=== PATIENT | male | born 1955 | race Caucasian/White ===

== ENCOUNTER 2019-10-29 23:25 | Emergency (ER) | payer BC ==
--- NOTE | 2019-10-29 23:29 | ED Physician Documentation ---
History of Present Illness - Stated complaint Stated Complaint: CHEST DISCOMFORT, NAUSEA - History obtained from History obtained from: Patient (Patient is a very pleasant 64-year-old male who presents with a chief complaint of chest pain and a feeling of being nauseated off and on for the last several night he was unable to sleep complaining of chest pain without shortness of breath he denies any history of pulmonary embolism or DVT he denies any hemoptysis. He denies any recent surgeries or long travels or any personal or family history of hypercoagulability. He reports he is not seen a doctor in several years she reports he is never had a stress test.He denies any syncopal episodes he denies abdominal pain or dark urine or abiodun colored stools or any jaundice-like symptoms.) Review of Systems Constitutional: reports: Reviewed and negative Eyes: reports: Reviewed and negative Ears: reports: Reviewed and negative Nose: reports: Reviewed and negative Throat: reports: Reviewed and negative Cardiac: reports: Chest pain / pressure Respiratory: reports: Reviewed and negative GI: reports: Reviewed and negative : reports: Reviewed and negative Skin: reports: Reviewed and negative Musculoskeletal: reports: Reviewed and negative Neurologic: reports: Reviewed and negative Psychiatric: reports: Reviewed and negative Endocrine: reports: Reviewed and negative Immunocompromised: reports: Reviewed and negative PD PAST MEDICAL HISTORY - Present Medications Home Medications: Ambulatory Orders Medication Instructions Recorded Confirmed No Known Home Medications 10/29/19 10/29/19 - Allergies Allergies/Adverse Reactions: Allergies Allergy/AdvReac Type Severity Reaction Status Date / Time No Known Drug Allergies Allergy Verified 10/29/19 23:45 PD ED PE NORMAL - Vitals Vital signs reviewed: Yes - General General: Alert and oriented X 3, No acute distress - HEENT HEENT: Atraumatic, PERRL, EOMI, Ears normal, Pharynx benign - Neck Neck: Supple, no meningeal sign, No bony TTP, No JVD - Cardiac Cardiac: RRR, No murmur, Strong equal pulses - Respiratory Respiratory: No respiratory distress, Clear bilaterally - Abdomen Abdomen: Normal bowel sounds, Soft, Non tender, Non distended, No organomegaly - Derm Derm: Normal color, Warm and dry, No rash - Extremities Extremities: No deformity, No tenderness to palpate, Normal ROM s pain, No edema, No calf tenderness / cord - Neuro Neuro: Alert and oriented X 3, 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, No motor deficit, No sensory deficit, Normal speech - Psych Psych: Normal mood, Normal affect Results - Vitals Vitals: Vital Signs - 24 hr 10/29/19 10/30/19 10/30/19 23:30 00:04 00:08 Temperature 36.6 C Heart Rate 66 68 76 Respiratory 12 17 12 Rate Blood Pressure 167/91 H 151/91 H 131/102 H Blood Pressure 167/91 H [Left] Blood Pressure 126/85 H [Right] O2 Saturation 98 99 97 10/30/19 10/30/19 10/30/19 00:21 00:29 00:55 Temperature Heart Rate 64 69 66 Respiratory 12 12 15 Rate Blood Pressure 126/85 H 123/80 113/70 Blood Pressure [Left] Blood Pressure [Right] O2 Saturation 99 96 99 10/30/19 10/30/19 01:19 01:37 Temperature Heart Rate 59 L 61 Respiratory 16 12 Rate Blood Pressure 109/67 123/70 Blood Pressure [Left] Blood Pressure [Right] O2 Saturation 96 99 Oxygen O2 Source Room air - EKG (time done) 23:33 Rate: Other (EKG shows a rate of 65 MO interval 165 QRS 104 QTc 437P waves are upright in leads I, II and III inverted in aVR there is no MO depression or MO depression and lead to aVR respectively there is normal axis there is good R wave progression there is no acute ST segment elevation or depression no shortened MO intervals no biphasic T waves otherwise its a nonspecific EKG he has an isolated inverted T wave in lead III) 01:22 Rate: Other (NO STEMI) - Labs Labs: Laboratory Tests 10/29/19 10/29/19 10/29/19 23:40 23:40 23:40 WBC 9.8 RBC 4.56 L Hgb 14.2 Hct 42.5 MCV 93.2 MCH 31.1 H MCHC 33.4 RDW 13.0 Plt Count 270 MPV 11.5 H Neut # (Auto) 4.4 Lymph # (Auto) 3.4 Coryell # (Auto) 1.3 H Eos # (Auto) 0.5 Baso # (Auto) 0.1 Absolute Nucleated RBC 0.00 Nucleated RBC % 0.0 PT 11.5 INR 1.0 APTT 32.4 Sodium 138 Potassium 3.6 Chloride 102 Carbon Dioxide 28 Anion Gap 8.0 BUN 14 Creatinine 0.8 Estimated GFR (MDRD) 97 Glucose 112 H Calcium 9.2 Total Bilirubin 0.5 AST 16 ALT 22 Alkaline Phosphatase 52 Troponin I High Sens B-Natriuretic Peptide Total Protein 7.3 Albumin 4.2 Globulin 3.1 Albumin/Globulin Ratio 1.4 Lipase 34 10/29/19 10/29/19 23:40 23:55 WBC RBC Hgb Hct MCV MCH MCHC RDW Plt Count MPV Neut # (Auto) Lymph # (Auto) Coryell # (Auto) Eos # (Auto) Baso # (Auto) Absolute Nucleated RBC Nucleated RBC % PT INR APTT Sodium Potassium Chloride Carbon Dioxide Anion Gap BUN Creatinine Estimated GFR (MDRD) Glucose Calcium Total Bilirubin AST ALT Alkaline Phosphatase Troponin I High Sens 4.4 B-Natriuretic Peptide 35 Total Protein Albumin Globulin Albumin/Globulin Ratio Lipase PD MEDICAL DECISION MAKING - ED course Complexity details: re-evaluated patient, d/w patient (The patient was evaluated multiple times the patient reports he is pain-free I did recommended mission as the patient has a heart score of 6. I did recommend admission for further evaluation to include echo of the heart as well as consider a stress test. The patient would like to be discharged home and follow-up with a motor equipment lieutenant as an outpatient. He does have medical decision-making capability and capacity and accepts all risks to include sudden , cardiac arrest, respiratory arrest or any possible adverse outcome such as disability and assumes a liability.) Departure - Departure Disposition: 01 Home, Self Care Clinical Impression: Chest pain Qualifiers: Chest pain type: other chest pain Qualified Code(s): R07.89 - Other chest pain Condition: Good Instructions: ED Heart Disease Risk Factors Follow-Up: YOUR,DOCTOR [Other] - Tomorrow
[2019-10-29] MEDS ORDERED: ASPIRIN 325 MG TABLET PO STA (23:56)
[2019-10-29] MEDS ORDERED: SODIUM CHLORIDE 0.9% 1,000 ML IV ONE (23:56)
[2019-10-29] MEDS ORDERED: NITROGLYCERIN SL 0.4 MG TABLET SL STA (23:57)
[2019-10-30 00:09] LABS: BASOPHILS # (AUTO) 0.1 10^3/uL (0.0-0.1); EOSINOPHILS # (AUTO) 0.5 10^3/uL (0.0-0.7); EOSINOPHILS % (AUTO) 5.5 %; HGB - HEMOGLOBIN 14.2 g/dL (14.0-18.0); LYMPHOCYTES # (AUTO) 3.4 10^3/uL (1.5-3.5); LYMPHOCYTES % (AUTO) 34.7 %; MEAN CORPUSCULAR HEMOGLOBIN 31.1 pg (27.0-31.0); MEAN CORPUSCULAR HGB CONC 33.4 g/dL (32.0-36.0); MEAN CORPUSCULAR VOLUME 93.2 fL (80.0-94.0); MEAN PLATELET VOLUME 11.5 fL (7.4-11.4); MONOCYTES # (AUTO) 1.3 10^3/uL (0.0-1.0); MONOCYTES % (AUTO) 13.6 %; NEUTROPHILS # (AUTO) 4.4 10^3/uL (1.5-6.6); NEUTROPHILS % (AUTO) 44.9 %; PLT - PLATELET COUNT 270 10^3/uL (130-450); RED BLOOD COUNT 4.56 10^6/uL (4.70-6.10); WHITE BLOOD COUNT 9.8 x10^3/uL (4.8-10.8)
[2019-10-30 00:17] LABS: ALBUMIN 4.2 g/dL (3.2-5.5); ALBUMIN/GLOBULIN RATIO 1.4 (1.0-2.2); BILIRUBIN,TOTAL 0.5 mg/dL (0.2-1.0); CALCIUM 9.2 mg/dL (8.5-10.3); CREATININE 0.8 mg/dL (0.6-1.2); TOTAL PROTEIN 7.3 g/dL (6.7-8.2)
[2019-10-30 00:22] LABS: PT - PROTHROMBIN TIME 11.5 secs (9.9-12.6)
[2019-10-30 00:30] LABS: PARTIAL THROMBOPLASTIN TIME 32.4 secs (24.9-33.3)
--- NOTE | 2019-10-30 00:52 | XRAY Report ---
Reason: CP Procedure Date: 10/30/2019 Accession Number: [id number] / [id number] Procedure: XR - Chest 1 View X-Ray CPT Code: 84462 Final Report FULL RESULT: EXAM: CHEST RADIOGRAPHY EXAM DATE: 10/30/2019 12:14 AM. CLINICAL HISTORY: CP. COMPARISON: None. TECHNIQUE: 1 view. FINDINGS: Lungs/Pleura: No focal opacities evident. No pleural effusion. No pneumothorax. Mediastinum: Cardiomegaly. Other: None. IMPRESSION: Cardiomegaly, but no evidence of acute cardiopulmonary disease. RADIA
[2019-10-30 02:11] VITALS: BP 135/79
== END 2019-10-30 02:21 | disposition home or self-care (01) ==
LOC: ED 23:25
DX: R07.9 Chest pain, unspecified (principal)
CPT/HCPCS: 36415; 71045; 80053; 83690; 83880; 84484; 85025; 85610; 85730; 93005; 96360; 99284; A9270

== ENCOUNTER 2021-07-24 11:49 | Emergency (ER) | payer OTHER, BC ==
[2021-07-24 11:57] VITALS: BP 164/103
[2021-07-24] MEDS ORDERED: MELOXICAM 7.5 MG TABLET PO STA (12:18)
--- NOTE | 2021-07-24 12:21 | ED Physician Documentation ---
History of Present Illness - Stated complaint Stated Complaint: L SIDE BACK PX - Chief complaint Chief Complaint: Back Pain - History obtained from History obtained from: Patient - History of Present Illness Timing: Today Pain level max: 5 Pain level now: 3 - Additonal information Additional information: Patient is a 65-year-old male who presents to the emergency department stating he has left mid back soreness after cleaning objects on the ground yesterday at work. Has not taken anything for pain. Worse with movement, better with rest. Has a history of low back problems, states this feels different. No loss of bowel or bladder control. No numbness or tingling. No fevers or chills. No IV drug use. Review of Systems Constitutional: denies: Fever, Chills GI: denies: Vomiting, Diarrhea Skin: denies: Rash Musculoskeletal: denies: Neck pain, Back pain Neurologic: denies: Headache PD PAST MEDICAL HISTORY - Past Medical History Past Medical History: No - Past Surgical History Past Surgical History: Yes Derm: Other - Present Medications Home Medications: Ambulatory Orders Medication Instructions Recorded Confirmed Meloxicam [Mobic] 15 mg PO DAILY PRN #20 tablet 07/24/21 - Allergies Allergies/Adverse Reactions: Allergies Allergy/AdvReac Type Severity Reaction Status Date / Time No Known Drug Allergies Allergy Verified 07/24/21 11:57 - Living Situation Living Situation: reports: With family Living Arrangement: reports: At home - Social History Does the pt smoke?: No Smoking Status: Never smoker Does the pt drink ETOH?: Yes Does the pt have substance abuse?: No - Immunizations Immunizations are current?: Yes - POLST Patient has POLST: No PD ED PE NORMAL - Vitals Vital signs reviewed: Yes - General General: Alert and oriented X 3, No acute distress, Well developed/nourished - HEENT HEENT: Moist mucous membranes - Neck Neck: Supple, no meningeal sign - Cardiac Cardiac: RRR, Strong equal pulses - Respiratory Respiratory: No respiratory distress, Clear bilaterally - Abdomen Abdomen: Soft, Non tender, Non distended - Back Back: No spinal TTP (No midline tenderness to palpation or percussion. No step- off or deformity.), Other (There is mild tenderness left paraspinal approximately level 1 L2 area. About 4 cm from the spine itself.) - Derm Derm: Warm and dry - Neuro Neuro: Alert and oriented X 3, No motor deficit, No sensory deficit, Other (Normal bilateral lower extremity patellar and ankle jerk reflexes. Normal great toe extension bilaterally. no saddle anesthesia) - Psych Psych: Normal mood, Normal affect Results - Vitals Vitals: Vital Signs - 24 hr 07/24/21 11:53 Temperature 36.8 C Heart Rate 68 Respiratory 18 Rate Blood Pressure 164/103 H O2 Saturation 98 Oxygen O2 Source Room air PD MEDICAL DECISION MAKING - ED course Complexity details: considered differential (No cauda equina, no spinal epidural abscess, no fracture, no aortic dissection or evidence of aneursym rupture), d/w patient ED course: Patient with what appears to be muscle strain. No indication for imaging. Ambulating without difficulty. No evidence of cauda equina, epidural abscess. Patient states that meloxicam has worked well in the past. We will place him on this for home and have him follow-up with his doctor. Patient counseled regarding signs and symptoms for which I believe and urgent re-evaluation would be necessary. Patient with good understanding of and agreement to plan and is comfortable going home at this time This document was made in part using voice recognition software. While efforts are made to proofread this document, sound alike and grammatical errors may occur. Departure - Departure Disposition: 01 Home, Self Care Clinical Impression: Muscle spasm of back Condition: Good Instructions: ED Low Back Pain Injury Follow-Up: your,doctor in 1 week [Other] Prescriptions: Meloxicam [Mobic] 15 mg PO DAILY PRN #20 tablet PRN Reason: pain Comments: Your prescriptions were sent to the [facility] pharmacy. Please follow-up with your doctor for further care. Return if you worsen. Discharge Date/Time: 07/24/21 12:26
== END 2021-07-24 12:26 | disposition home or self-care (01) ==
LOC: ED 11:49
DX: M62.830 Muscle spasm of back (principal)
CPT/HCPCS: 99282; 99283; A9270

== ENCOUNTER 2022-08-07 08:51 | Outpatient (CLI) | payer BC ==
[2022-08-07 09:05] LABS: BASOPHILS # (AUTO) 0.1 10^3/uL (0.0-0.1); BASOPHILS % (AUTO) 0.7 %; EOSINOPHILS # (AUTO) 0.3 10^3/uL (0.0-0.7); EOSINOPHILS % (AUTO) 3.8 %; HCT - HEMATOCRIT 44.5 % (42.0-52.0); HGB - HEMOGLOBIN 14.6 g/dL (14.0-18.0); LYMPHOCYTES # (AUTO) 2.3 10^3/uL (1.5-3.5); LYMPHOCYTES % (AUTO) 27.8 %; MEAN CORPUSCULAR HEMOGLOBIN 29.7 pg (27.0-31.0); MEAN CORPUSCULAR HGB CONC 32.8 g/dL (32.0-36.0); MEAN CORPUSCULAR VOLUME 90.4 fL (80.0-94.0); MEAN PLATELET VOLUME 11.1 fL (7.4-11.4); MONOCYTES # (AUTO) 0.8 10^3/uL (0.0-1.0); MONOCYTES % (AUTO) 9.8 %; NEUTROPHILS # (AUTO) 4.7 10^3/uL (1.5-6.6); NEUTROPHILS % (AUTO) 57.5 %; PLT - PLATELET COUNT 251 10^3/uL (130-450); RED BLOOD COUNT 4.92 10^6/uL (4.70-6.10); RED CELL DISTRIBUTION WIDTH 13.3 % (12.0-15.0); WHITE BLOOD COUNT 8.1 x10^3/uL (4.8-10.8)
[2022-08-07 09:25] LABS: ALBUMIN 4.5 g/dL (3.2-5.5); ALBUMIN/GLOBULIN RATIO 1.6 (1.0-2.2); ALKALINE PHOSPHATASE 59 IU/L (42-121); ALT ALANINE AMINOTRANSFERASE 22 IU/L (10-60); AST ASPARTATE AMINOTRANSFERASE 17 IU/L (10-42); BILIRUBIN,TOTAL 0.9 mg/dL (0.2-1.0); BUN - BLOOD UREA NITROGEN 23 mg/dL (6-20); CALCIUM 9.4 mg/dL (8.5-10.3); CARBON DIOXIDE - CO2 25 mmol/L (21-32); CHLORIDE 105 mmol/L (101-111); CHOL/HDL RATIO 2.5 (<5.0); CHOLESTEROL 161 mg/dL; CREATININE 0.8 mg/dL (0.6-1.2); GFR - MDRD 96 (>89); GLUCOSE 113 mg/dL (70-100); HDL CHOLESTEROL 64 mg/dL; LDL CHOLESTEROL,CALCULATED 89 mg/dL; LDL/HDL RATIO 1.4 (<3.6); POTASSIUM 4.2 mmol/L (3.5-5.0); SODIUM 139 mmol/L (135-145); TOTAL PROTEIN 7.3 g/dL (6.7-8.2); TRIGLYCERIDES 42 mg/dL; VLDL CHOLESTEROL 8 mg/dL
== END 2022-08-07 08:52 | disposition home or self-care (01) ==
LOC: LAB 08:51
PROVIDERS: ATTEND Registered Nurse
DX: Z79.899 Other long term (current) drug therapy (principal); Z13.220 Encounter for screening for lipoid disorders; Z12.5 Encounter for screening for malignant neoplasm of prostate
CPT/HCPCS: 36415; 80053; 80061; 83721; 84153; 85025

== ENCOUNTER 2023-02-27 08:00 | Outpatient (CLI) | payer BC, MEDICARE ==
[2023-02-28 06:10] LABS: ADENOVIRUS F 40/41 Not Detected (Not Detected); ASTROVIRUS Not Detected (Not Detected); C DIFFICILE TOXIN A/B Not Detected (Not Detected); CAMPYLOBACTER Not Detected (Not Detected); CRYPTOSPORIDIUM Not Detected (Not Detected); CYCLOSPORA CAYETANENSIS Not Detected (Not Detected); ENTAMOEBA HISTOLYTICA Not Detected (Not Detected); ENTEROAGGREGATIVE E COLI Not Detected (Not Detected); ENTEROPATHOGENIC E COLI Not Detected (Not Detected); ENTEROTOXIGENIC E COLI Not Detected (Not Detected); GIARDIA LAMBLIA Not Detected (Not Detected); NOROVIRUS GI/GII Not Detected (Not Detected); PLESIOMONAS SHIGELLOIDES Not Detected (Not Detected); ROTAVIRUS A Not Detected (Not Detected); SALMONELLA Not Detected (Not Detected); SAPOVIRUS Not Detected (Not Detected); SHIGA-TOXIN-PRODUCING E COLI Not Detected (Not Detected); SHIGELLA/ENTEROINVASIVE E COLI Not Detected (Not Detected); VIBRIO Not Detected (Not Detected); VIBRIO CHOLERAE Not Detected (Not Detected); YERSINIA ENTEROCOLITICA Not Detected (Not Detected)
== END 2023-02-27 23:59 | disposition home or self-care (01) ==
LOC: LAB 08:00
PROVIDERS: ATTEND Emergency Medicine
DX: R19.7 Diarrhea, unspecified (principal)
CPT/HCPCS: 87507